=== PATIENT | male | born 1955 | race Caucasian/White ===

== ENCOUNTER → 2018-11-25 | Outpatient (CLI) | payer MEDICARE, OTHER | END | disposition home or self-care (01) | LOC: PCVCCLINIC 12:00 | PROVIDERS: ATTEND Internal Medicine Cardiovascular Disease | DX: I48.0 Paroxysmal atrial fibrillation (principal); R07.9 Chest pain, unspecified; I10 Essential (primary) hypertension; E78.00 Pure hypercholesterolemia, unspecified; K21.9 Gastro-esophageal reflux disease without esophagitis; G47.33 Obstructive sleep apnea (adult) (pediatric); E11.9 Type 2 diabetes mellitus without complications; R00.1 Bradycardia, unspecified | CPT/HCPCS: 36415; 80061; 93005; G0463 ==

== ENCOUNTER → 2019-01-01 | Outpatient (CLI) | payer MEDICARE, OTHER ==
--- NOTE | 2019-01-01 17:31 | PCVCIMAG ---
APPROVED REPORT Study performed: 01/01/2019 15:48:14 Exam: Stress Echocardiogram Indication: Chest pain , Atrial Fibrillation Patient Location: Echo lab Stress Nurse: Kat Alfredo RN Status: routine Ht: 5 ft 11 in HR: 64 bpm BP: 124/72 mmHg Rhythm: NSR Medical History Medical History: HTN, Hyperlipidemia, Diabetes Procedure The patient underwent an Exercise Stress Test using the Marquis Protocol. Blood pressure, heart rate, and EKG were monitored. An Echocardiogram was performed by optical coating technician in four stages in quad fashion. At peak stress, four selected images were obtained and placed side by side with resting images for comparison. Stress Test Details Stress Test: Exercise stress testing was performed using a Marquis protocol. HR Resting HR: 64 bpmMax Heart Rate (APMHR): 155 bpm Max HR Achieved: 137 bpmTarget HR (85% APMHR): 131 bpm % of APMHR: 88 Recovery HR: 86 bpm HR response to stress: Normal HR response to stress BP Resting BP: 124/72 mmHg Max BP: 186/70 mmHg Recovery BP: 138/78 mmHg BP response to stress: Normal blood pressure response to stress. ECG Resting ECG: Sinus Rhythm Stress ECG: Sinus Rhythm Recovery ECG: Sinus Rhythm Clinical Reason for Termination: Maximal effort Exercise duration: 9 min 31 sec Highest Stage Achieved: Stage 4: 4.2 mph at 16% grade. Exercise capacity: 11.70 METs Overall Exercise Capacity for Age: Good Stress ECG Conclusion ECG: Non-ischemic Clinical: Non-ischemic Pre-Stress Echo The resting Echocardiogram showed normal left ventricular contractility with an estimated Ejection Fraction of about >55%. Normal wall motion in all segments on baseline images. Post-Stress Echo The stress Echocardiogram showed normal left ventricular contractility with an estimated Ejection Fraction of about 60-65%. Normal augmentation of wall motion in all segments on post stress images. Clinical No clinical or ECG evidence for ischemia. Conclusion Clinical Response: Non-ischemic Exercise Capacity: Good Stress ECG Response: Non-ischemic Stress Echo Images: Non-ischemic The left ventricle is normal in size and wall thickness in both the rest and stress images. Other Information Study Quality: Adequate <Conclusion> The left ventricle is normal in size and wall thickness in both the rest and stress images.
== END | disposition home or self-care (01) ==
LOC: PCVCIMAG 15:29
PROVIDERS: ATTEND Internal Medicine Cardiovascular Disease
DX: I48.0 Paroxysmal atrial fibrillation (principal); I10 Essential (primary) hypertension; E78.00 Pure hypercholesterolemia, unspecified; E11.9 Type 2 diabetes mellitus without complications; R07.9 Chest pain, unspecified
CPT/HCPCS: 93325; 93351